=== PATIENT | female | born 1975 | race Caucasian/White ===

== ENCOUNTER 2018-06-16 20:47 | Emergency (ER) | payer BC, OTHER ==
[2018-06-16 21:20] LABS: Hematocrit 39.3 % (36.0-45.0); Lymphocytes % 34.5 % (15.3-44.8); MPV 8.7 fL (7.6-11.3); Monocytes % 9.4 % (3.3-12.3); RBC Red Blood Cell Count 4.17 M/uL (3.86-4.86)
[2018-06-16 21:21] LABS: Absolute Lymphocytes (CBC) 3.3 K/uL (0.7-4.9); Absolute Monocytes 0.9 K/uL (0.1-1.3); Absolute Neutrophil 5.2 K/uL (1.8-8.0); Basophils % 0.2 % (0-1.3); Eosinophils % 1.8 % (0-4.4)
[2018-06-16] MEDS ORDERED: KETOROLAC 30 MG/ML INJ ONE (21:22)
[2018-06-16] MEDS ORDERED: ONDANSETRON 4 MG/2 ML VIAL ONE (21:22)
[2018-06-16 21:37] LABS: Albumin 4.1 g/dL (3.4-5.0); Bilirubin Total 0.7 mg/dL (0.2-1.0); Potassium 3.6 mmol/L (3.5-5.1); Protein, Total 7.5 g/dL (6.4-8.2)
[2018-06-16 22:26] LABS: Urine Specific Gravity >1.030 (1.005-1.030)
[2018-06-16 22:26] LABS: Urine Blood 2+ (NEG); Urine Glucose NEGATIVE (NEG); Urine Protein TRACE (NEG); Urine Specific Gravity >1.030 (1.005-1.030); Urine pH 5.5 (5.0-7.0)
[2018-06-16 23:46] LABS: Calcium Oxalate Crystals- Ur FEW (NONE SEEN); Urine Bacteria <20 /HPF (<20); Urine Culture Reflex Order NOT NEEDED; Urine Mucus HEAVY /HPF (NONE SEEN)
--- NOTE | 2018-06-17 00:09 | ER ---
Nurse's Notes [facility] Name: Naomi Muñoz Age: 42 yrs Sex: Female : 1975 Arrival Date: 06/16/2018 Time: 20:50 Bed 28 Private MD: Diagnosis: Left kidney stone;renal colic Presentation: 06/16 21:01 Presenting complaint: Patient states: i have sharp pain in my left flank and back. it mg2 started 2 days ago and went away and came back again today. i vomited 2x yesterday. Transition of care: patient was not received from another setting of care. Onset of symptoms was June 16, 2018. Risk Assessment: Do you want to hurt yourself or someone else? Patient reports no desire to harm self or others. Initial Sepsis Screen: Does the patient meet any 2 criteria? No. Patient's initial sepsis screen is negative. Does the patient have a suspected source of infection? No. Patient's initial sepsis screen is negative. Care prior to arrival: None. 21:01 Method Of Arrival: Wheelchair mg2 21:01 Acuity: QUAN 3 mg2 Triage Assessment: 21:15 General: Appears uncomfortable, Behavior is cooperative, restless. Pain: Complains of mg2 pain in left flank and back Pain does not radiate. Pain currently is 8 out of 10 on a pain scale. Quality of pain is described as aching, Pain began gradually, 2-3 days ago. Is intermittent. EENT: No signs and/or symptoms were reported regarding the EENT system. Neuro: Level of Consciousness is awake, alert, obeys commands, Oriented to person, place, time, situation. Cardiovascular: Capillary refill < 3 seconds Patient's skin is warm and dry. Respiratory: Airway is patent Respiratory effort is even, unlabored, Respiratory pattern is regular, symmetrical. GI: Abdomen is flat, non-distended, Reports lower abdominal pain, vomiting, since today. : Reports pain in left flank(s), lower quadrant(s) in lower back. Derm: Skin is intact, is healthy with good turgor, Skin is pink, warm \T\ dry. normal. Musculoskeletal: Circulation, motion, and sensation intact. Capillary refill < 3 seconds. 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 - Social history:: Smoking status: Patient/guardian denies using tobacco. - Ebola Screening: : No symptoms or risks identified at this time. Screenin:18 Abuse screen: Denies threats or abuse. Denies injuries from another. Nutritional mg2 screening: No deficits noted. Tuberculosis screening: No symptoms or risk factors identified. Fall Risk IV access (20 points). Assessment: 21:18 Reassessment: pls see triage assessment. mg2 06/17 00:17 Reassessment: Patient appears in no apparent distress at this time. Patient and/or mg2 family updated on plan of care and expected duration. Pain level reassessed. Patient is alert, oriented x 3, equal unlabored respirations, skin warm/dry/pink. Patient denies pain at this time. Patient states feeling better. Patient states symptoms have improved. Vital Signs: 06/16 21:03 BP 131 / 85; Pulse 97; Resp 18; Temp 98.4(O); Pulse Ox 100% on R/A; Weight 70.31 kg; mg2 Height 5 ft. 6 in. (167.64 cm); Pain 8/10; 22:23 BP 127 / 81; Pulse 88; Resp 18; Pulse Ox 100% on R/A; Pain 2/10; mg2 06/17 00:18 BP 122 / 78; Pulse 80; Resp 18; Pulse Ox 100% on R/A; Pain 0/10; mg2 06/16 21:03 Body Mass Index 25.02 (70.31 kg, 167.64 cm) mg2 ED Course: 06/16 20:50 Patient arrived in ED. es 20:53 El Zuniga MD is Attending Physician. ps1 20:58 Augustin Rizo, ROSCOE is Primary Nurse. mg2 21:03 Triage completed. mg2 21:04 Arm band placed on. mg2 21:15 Radiology exam delayed due to test not completed at this time. eh 21:19 Patient has correct armband on for positive identification. Pulse ox on. NIBP on. Door mg2 closed. 21:19 No provider procedures requiring assistance completed. Inserted saline lock: 20 gauge mg2 in left antecubital area, using aseptic technique. Blood collected. 22:17 CT completed. Patient tolerated procedure well. CT completed. Patient tolerated eh procedure well. Patient moved to CT via wheelchair. Patient moved to radiology via wheelchair. Patient moved back from CT. 22:20 Stone Protocol In Process Unspecified. EDMS 06/17 00:07 Juan David Arredondo MD is Referral Physician. ps1 00:17 IV discontinued, intact, bleeding controlled, No redness/swelling at site. Pressure mg2 dressing applied. Administered Medications: 06/16 21:15 Drug: TORadol 30 mg Route: IVP; Site: left antecubital; mg2 22:03 Follow up: Response: No adverse reaction; Marked relief of symptoms mg2 21:15 Drug: Zofran 4 mg Route: IVP; Site: left antecubital; mg2 22:02 Follow up: Response: No adverse reaction; Marked relief of symptoms mg2 Outcome: 06/17 00:08 Discharge ordered by MD. ps1 00:18 Discharged to home ambulatory, with family. mg2 00:18 Condition: stable 00:18 Discharge instructions given to patient, family, Instructed on discharge instructions, follow up and referral plans. medication usage, Demonstrated understanding of instructions, follow-up care, medications, Prescriptions given X 3. 00:19 Patient left the ED. mg2 Signatures: Dispatcher [employer] [facility] Darby Roland Ervin eh Singer, Phillip, MD MD ps1 Augustin Rizo RN RN mg2 Corrections: (The following items were deleted from the chart) 06/16 21:09 21:03 BP 131 / 85; Pulse 97bpm; Resp 18bpm; Pulse Ox 100% RA; 70.31 kg; Height 5 ft. 6 mg2 in.; BMI: 25.0; Pain 8/10; mg2
--- NOTE | 2018-06-17 00:09 | EDPHYS ---
Physician Documentation [facility] Name: Naomi Muñoz Age: 42 yrs Sex: Female : 1975 Arrival Date: 06/16/2018 Time: 20:50 Bed 28 Private MD: ED Physician El Zuniga HPI: 06/16 21:15 This 42 yrs old Female presents to ER via Wheelchair with complaints of Flank ps1 Pain, Back Pain, Abdominal Pain. 21:15 patient states the onset was 3 days prior to arrival. States that the pain originates ps1 in the left flank and radiates into the groin. Pain is described as dull pressure. No fever. Has frequency. No nausea. No hx of stones. . 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 - Social history:: Smoking status: Patient/guardian denies using tobacco. - Ebola Screening: : No symptoms or risks identified at this time. ROS: 21:15 Constitutional: Negative for fever, chills, and weight loss, Eyes: Negative for injury, ps1 pain, redness, and discharge, Cardiovascular: Negative for chest pain, palpitations, and edema, Respiratory: Negative for shortness of breath, cough, wheezing, and pleuritic chest pain, Abdomen/GI: Negative for abdominal pain, nausea, vomiting, diarrhea, and constipation, MS/Extremity: Negative for injury and deformity, Skin: Negative for injury, rash, and discoloration, Neuro: Negative for headache, weakness, numbness, tingling, and seizure. 21:15 : Positive for urinary symptoms, flank pain, urinary frequency. Exam: 21:15 Constitutional: This is a well developed, well nourished patient who is awake, alert, ps1 and in no acute distress. Head/Face: Normocephalic, atraumatic. Eyes: Pupils equal round and reactive to light, extra-ocular motions intact. Lids and lashes normal. Conjunctiva and sclera are non-icteric and not injected. ENT: Nares patent. No nasal discharge, no septal abnormalities noted. Tympanic membranes are normal and external auditory canals are clear. Oropharynx with no redness, swelling, or masses, exudates, or evidence of obstruction, uvula midline. Mucous membranes moist. Chest/axilla: Normal chest wall appearance and motion. Nontender with no deformity. No lesions are appreciated. Cardiovascular: Regular rate and rhythm. No gallops, murmurs, or rubs. Normal PMI, no JVD. No pulse deficits. Respiratory: Lungs have equal breath sounds bilaterally, clear to auscultation and percussion. No rales, rhonchi or wheezes noted. No increased work of breathing, no retractions or nasal flaring. Abdomen/GI: Soft, non-tender, with normal bowel sounds. No distension or tympany. No guarding or rebound. No evidence of tenderness throughout. MS/ Extremity: Pulses equal, no cyanosis. Neurovascular intact. Full, normal range of motion. Neuro: Awake and alert, GCS 15, oriented to person, place, time, and situation. Cranial nerves II-XII grossly intact. Sensory grossly intact. Psych: Awake, alert, with orientation to person, place and time. Behavior, mood, and affect are within normal limits. Vital Signs: 21:03 BP 131 / 85; Pulse 97; Resp 18; Temp 98.4(O); Pulse Ox 100% on R/A; Weight 70.31 kg; mg2 Height 5 ft. 6 in. (167.64 cm); Pain 8/10; 22:23 BP 127 / 81; Pulse 88; Resp 18; Pulse Ox 100% on R/A; Pain 2/10; mg2 06/17 00:18 BP 122 / 78; Pulse 80; Resp 18; Pulse Ox 100% on R/A; Pain 0/10; mg2 06/16 21:03 Body Mass Index 25.02 (70.31 kg, 167.64 cm) mg2 MDM: 06/16 21:05 Patient medically screened. ps1 06/17 00:09 Data reviewed: vital signs, nurses notes, lab test result(s), radiologic studies, and ps1 as a result, I will discharge patient. Counseling: I had a detailed discussion with the patient and/or guardian regarding: the historical points, exam findings, and any diagnostic results supporting the discharge/admit diagnosis, lab results, radiology results, the need for outpatient follow up, to return to the emergency department if symptoms worsen or persist or if there are any questions or concerns that arise at home. ED course: small stone. no infection. Candidate for medical expulsion therapy. Stable for discharge. 06/16 21:04 Order name: CBC with Diff; Complete Time: 21:39 ps1 06/16 21:04 Order name: Creatinine for Radiology; Complete Time: 21:39 ps1 06/16 21:04 Order name: Lipase; Complete Time: 21:39 ps1 06/16 21:04 Order name: CMP; Complete Time: 21:39 ps1 06/16 22:03 Order name: Urine Microscopic Only; Complete Time: 00:06 mg2 06/16 22:03 Order name: Urine Dipstick--Ancillary (enter results); Complete Time: 23:11 ms 06/16 21:04 Order name: IV Saline Lock; Complete Time: 21:15 ps1 06/16 21:04 Order name: Labs collected and sent; Complete Time: 21:15 ps1 06/16 21:05 Order name: Urine Dipstick-Ancillary (obtain specimen); Complete Time: 22:03 ps1 06/16 21:51 Order name: Stone Protocol EDIA 06/16 22:04 Order name: Urine --Ancillary (enter results); Complete Time: 23:11 ms Administered Medications: 06/16 21:15 Drug: TORadol 30 mg Route: IVP; Site: left antecubital; mg2 22:03 Follow up: Response: No adverse reaction; Marked relief of symptoms mg2 21:15 Drug: Zofran 4 mg Route: IVP; Site: left antecubital; mg2 22:02 Follow up: Response: No adverse reaction; Marked relief of symptoms mg2 Disposition: 06/17/18 00:08 Discharged to Home. Impression: Left kidney stone, renal colic. - Condition is Stable. - Discharge Instructions: Kidney Stones. - Prescriptions for ketorolac 10 mg Oral tablet - take 1 tablet by ORAL route every 6 hours for up to 5 days total use; 15 tablet. Zofran 4 mg Oral Tablet - take 1 tablet by ORAL route every 12 hours As needed; 20 tablet. Flomax 0.4 mg Oral Capsule, Sust. Release 24 hr - take 1 capsule by ORAL route once daily 1/2 hour following the same meal each day; 30 capsule. - Medication Reconciliation Form, Thank You Letter, Antibiotic Education, Prescription Opioid Use form. - Follow up: Juan David Arredondo MD; When: 1 week; Reason: Recheck today's complaints, Continuance of care, Re-evaluation by your physician. Follow up: Emergency Department; When: As needed; Reason: Fever > 102 F, Worsening of condition. - Problem is new. - Symptoms have improved. Signatures: Dispatcher [employer] [facility] El Zuniga MD MD ps1 Augustin Rizo RN RN mg2 Corrections: (The following items were deleted from the chart) 21:51 21:05 Abdomen Pelvis Wo [id number] ordered. [facility] 06/17 00:19 00:08 06/17/2018 00:08 Discharged to Home. Impression: Left kidney stone; renal colic. mg2 Condition is Stable. Forms are Medication Reconciliation Form, Thank You Letter, Antibiotic Education, Prescription Opioid Use. Follow up: Juan David Arredondo; When: 1 week; Reason: Recheck today's complaints, Continuance of care, Re-evaluation by your physician. Follow up: Emergency Department; When: As needed; Reason: Fever > 102 F, Worsening of condition. Problem is new. Symptoms have improved. ps1
--- NOTE | 2018-06-19 12:19 | RAD REPORT ---
EXAM DESCRIPTION: CT - Stone Protocol - 06/17/2018 1:16 am CLINICAL HISTORY: 42 years Female, left flank pain COMPARISON: None. TECHNIQUE: 3 mm axial images of the abdomen and pelvis were obtained without intravenous contrast. 3 mm coronal and sagittal reformatted images were obtained. This exam was performed according to our departmental dose-optimization program, which includes autom ated exposure control, adjustment of the mA and/or kV according to patient size and/or use of iterati ve reconstruction technique. INTRAVENOUS CONTRAST: None. FINDINGS: Lung bases: Normal. Liver: Normal. Spleen: Normal. Pancreas: Normal. Gallbladder: There is evidence of cholelithiasis. Right adrenal gland: Normal. Left adrenal gland: Normal. Right kidney: Normal. Left kidney: There is mild left hydroureteronephrosis secondary to a stone at the left UVJ which miranda ures 0.4 x 0.3 cm. Retroperitoneal structures: Normal. Bowel survey: There is increased stool within the ascending and transverse colon. The appendix is unr emarkable. The distal ileum is unremarkable. Urinary bladder: Normal. Uterus and adnexa: Normal. Peritoneal cavity: Normal. Mesentery structures: Normal. Abdominal wall: No hernia. Bony structures: No suspicious lesions. IMPRESSION: 1. Mild left hydroureteronephrosis secondary to obstructing stone at the left UVJ measur ing 0.4 x 0.3 cm. 2. Increased stool within the ascending and transverse colon. Electronically signed by: Ronan Pollard MD 06/16/2018 10:28 PM CDT Due to temporary technical issues with the PACS/Fluency reporting system, reports are being signed by the in house radiologist as a courtesy to ensure prompt reporting. The interpreting radiologist is f ully responsible for the content of the report.
== END 2018-06-17 00:19 | disposition home or self-care (01) ==
LOC: ER 20:47
DX: N20.0 Calculus of kidney (principal)
CPT/HCPCS: 36415; 74176; 76377; 80053; 81003; 81015; 81025; 83690; 85025; 96374; 96375; 99284; J2405